=== PATIENT | female | born 1955 | race Caucasian/White ===

== ENCOUNTER 2024-05-29 20:41 | Emergency (ER) | payer MEDICARE, OTHER ==
[~2024-05-29] VITALS: Ht 154.9 cm; Wt 75.0 kg
[2024-05-29 20:43] VITALS: BP 118/69; PULSE 77; RESP 16; TEMP 36.6; O2SAT 95
[2024-05-29] MEDS: TETANUS, DIPHTHERIA, PERTUSSIS VAC/PF 0.5ML (>10YR OLD) IM ONE (22:20)
== END 2024-05-29 22:25 | disposition home or self-care (01) ==
LOC: ER 20:41
DX: S01.511A Laceration without foreign body of lip, initial encounter (principal); E11.9 Type 2 diabetes mellitus without complications; I10 Essential (primary) hypertension; E78.00 Pure hypercholesterolemia, unspecified; Z98.890 Other specified postprocedural states; Z90.49 Acquired absence of other specified parts of digestive tract; V89.2XXA Person injured in unspecified motor-vehicle accident, traffic, initial encounter; Y93.89 Activity, other specified; Y92.89 Other specified places as the place of occurrence of the external cause; Y99.8 Other external cause status
CPT/HCPCS: 99283